=== PATIENT | female | born 1965 | race Caucasian/White ===

== ENCOUNTER 2016-12-13 20:40 | Inpatient (IN) | payer BC ==
[~2016-12-13] VITALS: Ht 152.4 cm; Wt 67.1 kg
--- NOTE | ~2016-12-13 | PN ---
Unit #: [id number] #: [id number] Patient: SON RODRIGUES [id number] [facility] [address] [place] [address] [id number] I MR#: [id number] NAME: SON RODRIGUES ROOM: P259 Age: 51 Sex: F Admission Date: 12/14/2016 : 1965 Attending Physician: Ilan Stapleton M.D. Admitting Physician: Ilan Stapleton M.D. Primary Care Physician: Primary Care Physician Tracie BRONSON NOTES DATE December 17, 2016 DISCUSSION Ms. Rodrigues is a 51-year-old white female, who was seen today and chart was reviewed and the case was discussed with the staff. She has been anxious, withdrawn, and rather seclusive to herself. Meanwhile, she has been cooperative with the treatment recommendations and she has been taking the medications and tolerating them fairly well with no reported side effects. MENTAL STATUS EXAMINATION Middle-aged white female, who was casually dressed with fair personal hygiene and appears to be in no acute distress or discomfort. She was awake and alert on interaction with intact orientation. Her mood was anxious with a congruent affect. She denies any suicidal or homicidal ideations, and also denies any auditory or visual hallucinations. Her insight and judgment remain slightly impaired. TREATMENT PLAN 1. We will continue her on her current medications and treatment protocol, and will monitor her response to the medications, and make further adjustments as needed. 2. We will continue to followup. Dictated by... Lizette Shah/francia TD: 12/19/2016 11:51 JOB #: [id number] Unit #: [id number] #: [id number] Patient: SON RODRIGUES PROGRESS NOTES Page 1 of 1 X Ilan Stapleton MD PROGRESS NOTE
--- NOTE | ~2016-12-13 | PN ---
Unit #: [id number] #: [id number] Patient: SON RODRIGUES [id number] [facility] [address] [place] [address] [id number] I MR#: [id number] NAME: SON RODRIGUES ROOM: P259 Age: 51 Sex: F Admission Date: 12/14/2016 : 1965 Attending Physician: Ilan Stapleton M.D. Admitting Physician: Ilan Stapleton M.D. Primary Care Physician: Primary Care Physician Tracie BRONSON NOTES DATE OF SERVICE 12/15/2016 DISCUSSION Ms. Rodrigues is a 51-year-old white female who was seen today. Chart was reviewed and case was discussed with the staff. She has been anxious, withdrawn, and rather seclusive to herself. Meanwhile, she has been cooperative with the treatment recommendations and has been taking the medications and tolerating them fairly well. MENTAL STATUS EXAMINATION Middle-aged white female who is casually dressed with fair personal hygiene, appears to be in no acute distress or discomfort. She was awake and alert on interaction with intact orientation. Her mood is anxious and depressed with congruent affect. Her speech is slow and goal-directed. She denies any suicidal or homicidal ideations. Her insight and judgment remain slightly impaired. TREATMENT PLAN 1. We will continue her on her current medications and treatment protocol. We will monitor her response and make further adjustments as needed. 2. We will continue to follow up. Dictated by... Ilan Stapleton M.D. IAA/bzg TD: 12/15/2016 12:03 JOB #: [id number] Unit #: [id number] #: [id number] Patient: SON RODRIGUES PROGRESS NOTES Page 1 of 1 X Ilan Stapleton MD PROGRESS NOTE
--- NOTE | ~2016-12-13 | PN ---
Unit #: [id number] #: [id number] Patient: SON RODRIGUES [id number] [facility] [address] [place] [address] [id number] I MR#: [id number] NAME: SON RODRIGUES ROOM: P259 Age: 51 Sex: F Admission Date: 12/14/2016 : 1965 Attending Physician: Ilan Stapleton M.D. Admitting Physician: Ilan Stapleton M.D. Primary Care Physician: Primary Care Physician Tracie BRONSON NOTES DATE OF SERVICE: 12/18/2016 SUBJECTIVE Ms. Rodrigues is a 51-year-old white female, who was seen today and chart was reviewed and case was discussed with the staff. She has been doing fairly well and has been showing improvement in her mood and anxiety and hoping she will be able to go home tomorrow. She has been taking medications and tolerating them fairly well. MENTAL STATUS EXAMINATION Middle-aged white female who was casually dressed with fair personal hygiene, appears to be in no acute distress or discomfort. She was awake and alert with intact orientation. Her mood was anxious with a congruent affect. She denies any suicidal or homicidal ideations and also denies any auditory or visual hallucinations. Her insight and judgment remain slightly impaired. TREATMENT PLAN 1. We will continue on her current treatment protocol. We will monitor her response and make further adjustments as needed. 2. We will continue to follow up. Dictated by... Lizette Shah/danyel TD: 12/20/2016 00:14 JOB #: [id number] [facility] PROGRESS NOTES Page 1 of 1 X Ilan Stapleton MD PROGRESS NOTE
--- NOTE | ~2016-12-13 | CO ---
Unit #: [id number] #: [id number] Patient: SON BALL [id number] [facility] [address] [place] [address] [id number] I MR#: [id number] NAME: SON BALL ROOM: P259 Age: 51 Sex: F Admission Date: 12/14/2016 : 1965 Attending Physician: Ilan Stapleton M.D. Primary Care Physician: Primary Care Physician No Consultation Date: 12/17/2016 CONSULTATION REPORT JOB NOTE: DICTATED FOR NOT DICTATED Ordering provider is Dr. Stapleton. REASON FOR CONSULTATION Sore throat. SUBJECTIVE The patient reports that she has had a sore throat for about 3 days. She has been having pain with swallowing. She does feel like she is swallowing a lot of mucus. OBJECTIVE A strep test was done which was negative. Physical examination does not show any tonsillar edema; however, she does have a significant amount of drainage in the back of her throat. ASSESSMENT Drain is caused by allergies. PLAN Plan is to start her on Zyrtec daily. Dictated by... Daren Olson/danyel TD: 12/18/2016 17:12 JOB #: [id number] CONSULTATION REPORT Page 1 of 1 X CITLALY BAJWA APRN CONSULTATION REPORT
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
--- NOTE | ~2016-12-13 | HP ---
Unit #: [id number] #: [id number] Patient: SU BALL [id number] [place] [address] [id number] I MR#: [id number] NAME: SU BALL ROOM: [facility] Age: 51 Sex: F Admission Date: 12/14/2016 : 1965 Attending Physician: Ilan Stapleton M.D. Admitting Physician: Ilan Stapleton M.D. Primary Care Physician: Primary Care Physician No HISTORY AND PHYSICAL HISTORY OF PRESENT ILLNESS Su is a 51 year old admitted to [facility] with depression and verbalizing wanting to hurt herself. PAST MEDICAL HISTORY 1. Hypothyroidism. 2. History of tachycardia. PAST SURGICAL HISTORY 1. x1. 2. Tubal ligation. 3. Left breast benign biopsy. ALLERGIES Codeine, sulfa, morphine, Vantin. SOCIAL HISTORY She does not smoke. Drinks alcohol rarely. Denies illicit drug use. FAMILY HISTORY Medically noncontributory. REVIEW OF SYSTEMS CONSTITUTIONAL: No fever or chills. HEENT: Denies any sore throat, ear pain or runny nose. CARDIOVASCULAR: Denies chest pain, irregular heart rhythm or palpitations. CHEST: Denies shortness of breath or cough. No hemoptysis. GASTROINTESTINAL: Denies nausea, vomiting, diarrhea or chronic constipation. ENDOCRINE: Denies history of increased thirst or urination. No recent significant weight loss or gain. GENITOURINARY: Denies dysuria, frequency, or hematuria. SKIN: Denies any rashes. HEMATOLOGIC: Denies history of increased bleeding or bruising. MUSCULOSKELETAL: Denies any hot, swollen joints. No generalized muscle pain. NEUROLOGIC: Denies problems with vision or speech. No frequent, severe headaches. No numbness, tingling or weakness in any extremities. Denies loss of bladder or bowel control. CURRENT MEDICATIONS 1. Effexor XR 75 mg b.i.d. 2. Lopressor 25 mg daily. Unit #: [id number] #: [id number] Patient: SU BALL 3. Multivitamin 1 daily. 4. Levothroid 0.075 mg daily. 5. Desyrel p.r.n. 6. Milk of Magnesia p.r.n. 7. Maalox p.r.n. 8. Tylenol p.r.n. PHYSICAL EXAMINATION GENERAL: Alert, well-nourished, in no apparent distress. VITAL SIGNS: Blood pressure 152/106, heart rate 92, respirations 16, temperature 98.6. WEIGHT: 148. HEIGHT: 5 feet 0 inches. SKIN: Warm and dry without rash or lesion. HEENT: Normocephalic. TMs not viewed. Oral and nasal passages clear. Conjunctivae clear. PERRLA. EOMs intact. NECK: Supple without lymphadenopathy or thyromegaly. HEART: Regular rate and rhythm without murmur. LUNGS: Clear. ABDOMEN: Soft, nontender. : Not done. EXTREMITIES: No evidence of cyanosis, clubbing or edema. Moves all without focal deficit. NEUROLOGICAL: Grossly within normal limits. Cranial Nerves: II: Visual lundberg are intact. III, IV AND : Extraocular movements are intact. Pupils are equal, round and reactive to light. V: Facial sensation is grossly normal. VII: Facial movements and expression are normal. VIII: Auditory acuity grossly intact. IX, X: Uvula is midline. Phonation is normal. XI: Patient shrugs shoulders and turns head normally. XII: Tongue protrudes in the midline. Sensory and Motor Function: Sensory and motor sensation is grossly normal. Motor: moves all extremities well. Coordination: Gait is normal. Deep Tendon Reflexes: Intact. IMPRESSION Psychiatric admission. RECOMMENDATIONS PSYCHIATRIC: Per psychiatrist. MEDICAL: See no contraindication to participate in facility's activities. MEDICAL PROGNOSIS Good. MEDICAL CONDITION Stable. Dictated by... Anette Ruiz P.A.-C. for Lizette Mujica/janae Unit #: [id number] #: [id number] Patient: SU BALL TD: 12/14/2016 15:13 JOB #: [id number] HISTORY AND PHYSICAL Page 1 of 1 X Anette Ruiz HISTORY AND PHYSICAL
--- NOTE | ~2016-12-13 | PN ---
Unit #: [id number] #: [id number] Patient: SON RODRIGUES [id number] [facility] [address] [place] [address] [id number] I MR#: [id number] NAME: SON RODRIGUES ROOM: P259 Age: 51 Sex: F Admission Date: 12/14/2016 : 1965 Attending Physician: Ilan Stapleton M.D. Admitting Physician: Ilan Stapleton M.D. Primary Care Physician: Primary Care Physician Tracie BRONSON NOTES DATE OF SERVICE 12/16/2016 DISCUSSION Ms. Rodrigues is a 51-year-old white female who was seen today. Chart was reviewed and case was discussed with the staff. She remains anxious and complaining of significant depressive symptom. Meanwhile, she has been taking the medications and tolerating them fairly well with no reported side effects. MENTAL STATUS EXAMINATION Middle-aged white female who is casually dressed with fair personal hygiene, appears to be in no acute distress or discomfort. She was awake and alert on interaction with intact orientation. Her mood is anxious and depressed with congruent affect. She denies any suicidal or homicidal ideations and also denies any auditory or visual hallucinations. Her insight and judgment remain slightly impaired. TREATMENT PLAN 1. We will continue her on her current medications and treatment protocol. We will monitor her response and maintain Effexor XR 75 mg twice a day. 2. We will continue to follow up. Dictated by... Ilan Stapleton M.D. IAA/bzg TD: 12/16/2016 18:38 JOB #: [id number] Unit #: [id number] #: [id number] Patient: SON RODRIGUES PROGRESS NOTES Page 1 of 1 X Ilan Stapleton MD X PROGRESS NOTE
--- NOTE | ~2016-12-13 | DS ---
Unit #: [id number] #: [id number] Patient: SON RODRIGUES [id number] [facility] [place] [address] [id number] I MR#: [id number] NAME: SON RODRIGUES ROOM: [facility] Age: 51 Sex: F Admission Date: 12/14/2016 : 1965 Discharge Date: 12/19/2016 Attending Physician: Ilan Stapleton M.D. Primary Care Physician: Primary Care Physician No DISCHARGE SUMMARY IDENTIFYING DATA Ms. Rodrigues is a 51-year-old white female, with history of mood disorder, who is a resident of [place], [place] and was self-referred to the hospital. HISTORY OF PRESENT ILLNESS Please see initial psychiatric evaluation for details. PAST PSYCHIATRIC HISTORY Please see initial psychiatric evaluation for details. PAST MEDICAL HISTORY Please see initial psychiatric evaluation for details. HOSPITAL COURSE The patient was [facility] and was oriented to the hospital environment. Routine p.r.n. medications were initiated and she was started back on her home medications and was seen to be anxious particularly worried about her legal issues and court date, and Effexor was increased to 75 mg twice a day and was encouraged to participate in the therapy groups and to develop coping skills, and was seen to be polite and pleasant, cooperative with treatment recommendations and able to show a decent therapeutic response to the medications followed by which it was discussed that she would be discharged home and will continue treatment on outpatient basis. DISCHARGE DIAGNOSES Psychiatric: [place] I Major depressive disorder, recurrent, moderate, without psychotic features. [place] II [place] III Hypothyroidism. Hypertension. [place] IV Moderate psychosocial stressors. [place] V DISCHARGE MEDICATIONS Effexor XR 75 mg twice a day for depression CONDITION AT DISCHARGE Stable. Unit #: [id number] #: [id number] Patient: SON RODRIGUES PROGNOSIS Fair. Dictated by... Lizette Shah/francia TD: 12/20/2016 11:12 JOB #: [id number] DISCHARGE SUMMARY Page 1 of 1 X Ilan Stapleton MD X DISCHARGE SUMMARY
[2016-12-14 09:46] LABS: BASOPHIL% 0.5 % (0-2.5); EOSINOPHIL# 0.1 X10e3 (0-0.7); EOSINOPHIL% 1.9 % (0.0-7.0); HEMATOCRIT 39.6 % (35.0-45.0); HEMOGLOBIN 13.5 gm/dL (12.0-16.0); LYMPHOCYTE# 2.1 X10e3 (1.0-3.5); LYMPHOCYTE% 31.9 % (17.0-45.0); MEAN CELL VOLUME 91.4 FL (83-96); MEAN CORPUSCULAR HEMOGLOBIN 31.2 PG (28-34); MEAN CORPUSCULAR HGB CONC 34.1 g/dL (30-36); MEAN PLATELET VOLUME 8.8 FL (6.5-11.5); MONOCYTE# 0.5 X10e3 (0-1.0); NEUTROPHIL# 3.8 X10e3 (1.5-7.1); NEUTROPHIL% 57.7 % (40-75); PLATELET COUNT 271 X10e3 (140-420); RED BLOOD COUNT 4.34 X10e (3.90-5.30); RED CELL DISTRIBUTION WIDTH 13.3 % (11.0-15.5); WHITE BLOOD COUNT 6.5 X10e3 (4.0-10.5)
[2016-12-14 09:48] LABS: DIFF IND NO
[2016-12-14 09:58] LABS: ALBUMIN SERUM 4.1 g/dL (3.5-5.0); BUN/CREATININE RATIO 15.55; CALCIUM SERUM 8.9 mg/dL (8.4-10.2); CREATININE SERUM 0.9 mg/dL (0.6-1.4); GLOM FILT RATE Estimated 73.6 mL/min (>60); PROTEIN TOTAL SERUM 6.2 g/dL (6.0-8.3)
[2016-12-15 10:25] LABS: URINE APPEARANCE CLEAR; URINE BILIRUBIN NEG (NEG); URINE BLOOD NEG (NEG); URINE COLOR YELLOW; URINE GLUCOSE NEG (NEG); URINE KETONE TRACE (NEG); URINE LEUKOCYTE ESTERASE NEG (NEG); URINE NITRATE NEG (NEG); URINE PROTEIN NEG (NEG); URINE SPECIFIC GRAVITY 1.026 (1.003-1.035)
[2016-12-15 10:37] LABS: AMPHETAMINE NEG (NEG); BARBITURATES NEG (NEG); BENZODIAZEPINES NEG (NEG); COCAINE NEG (NEG); MARIJUANA NEG (NEG); OPIATES NEG (NEG); TRICYCLIC ANTIDEPRESSANTS NEG (NEG); U METHADONE NEG (NEG)
== END 2016-12-19 11:40 | disposition home or self-care (01) | DRG 885 ==
LOC: P2L 12-14 01:01 → P1E 12-14 01:01 → P2L 12-14 15:08
PROVIDERS: Psychiatry & Neurology Psychiatry
DX: F33.1 Major depressive disorder, recurrent, moderate (principal); R45.851 Suicidal ideations; I10 Essential (primary) hypertension; E03.9 Hypothyroidism, unspecified; Z88.2 Allergy status to sulfonamides; Z88.5 Allergy status to narcotic agent; Z98.51 Tubal ligation status; J30.2 Other seasonal allergic rhinitis
CPT/HCPCS: 80053; 80307; 81003; 85025; 87651